=== PATIENT | male | born 2000 | race Caucasian/White ===

== ENCOUNTER → 2019-03-16 16:54 | Outpatient (CLI) | payer SELFPAY ==
[2019-03-16 18:41] LABS: Urine N gonorrhoeae NOT DETECTED
[2019-03-16 18:46] LABS: Urine Chlamydia NOT DETECTED
== END ==
PROVIDERS: Visit Provider Physician Assistant
DX: R30.0 Dysuria (principal)
CPT/HCPCS: 87491; 87591